=== PATIENT | female | born 1970 ===

== ENCOUNTER 2018-02-11 08:41 | Outpatient (CLI) | payer OTHER | END 2018-02-11 08:45 | disposition home or self-care (01) | LOC: MAMO-SONO 08:41 | DX: Z12.31 Encounter for screening mammogram for malignant neoplasm of breast (principal); N64.4 Mastodynia; N93.8 Other specified abnormal uterine and vaginal bleeding; N84.0 Polyp of corpus uteri ==

== ENCOUNTER 2024-06-11 08:43 | Outpatient (CLI) | payer OTHER | END 2024-06-11 08:48 | disposition home or self-care (01) | LOC: MAMO-SONO 08:43 | PROVIDERS: ATTEND Obstetrics & Gynecology | DX: R10.2 Pelvic and perineal pain (principal); Z12.31 Encounter for screening mammogram for malignant neoplasm of breast; N60.02 Solitary cyst of left breast ==

== ENCOUNTER 2025-01-26 08:47 | Outpatient (CLI) | payer OTHER | END 2025-01-26 08:51 | disposition home or self-care (01) | LOC: SONOGRAMA 08:47 | PROVIDERS: ATTEND Obstetrics & Gynecology | DX: R10.20 Pelvic and perineal pain unspecified side (principal) ==